=== PATIENT | female | born 1955 | race Caucasian/White ===

== ENCOUNTER 2022-07-23 11:17 | Emergency (ER) | payer BC ==
[~2022-07-23] VITALS: Ht 162.6 cm; Wt 71.4 kg
[2022-07-23 12:15] LABS: BASO # 0.03 K/mm3 (0.02-0.10); EOS # 0.18 K/mm3 (0.04-0.40); EOS % 3.1 % (1.0-5.0); HEMATOCRIT 43.7 % (37.0-47.0); HEMOGLOBIN 14.4 g/dL (12.5-16.0); LYMPH# 2.13 K/mm3 (1.50-4.00); MEAN CELL VOLUME 89 fl (78-100); MEAN CORPUSCULAR HEMOGLOBIN 29 pg (27-31); MEAN CORPUSCULAR HGB CONC 33 g/dL (33-37); MEAN PLATELET VOLUME 8.9 fl (7.4-10.4); MONO # 0.33 K/mm3 (0.20-0.80); NEU # 3.12 K/mm3 (1.40-6.50); PLATELET COUNT 272 K/mm3 (130-400); RED BLOOD COUNT 4.92 M/mm3 (4.10-5.30); RED CELL DISTRIBUTION WIDTH 12.8 % (11.5-14.5); WHITE BLOOD COUNT 5.8 K/mm3 (4.8-10.8)
[2022-07-23 12:18] LABS: ALBUMIN 4.3 g/dL (3.4-4.8); POTASSIUM 4.4 mmol/L (3.5-5.1)
[2022-07-23 12:21] LABS: TOTAL PROTEIN 7.4 g/dL (6.2-8.1)
[2022-07-23 12:22] LABS: TOTAL BILIRUBIN 0.5 mg/dL (0.2-1.2)
[2022-07-23 13:19] VITALS: BP 156/89
== END 2022-07-23 13:20 | disposition home or self-care (01) ==
LOC: ED 11:17
PROVIDERS: Physician Assistant
DX: R07.89 Other chest pain (principal); Z28.311 Partially vaccinated for COVID-19; Z88.8 Allergy status to other drugs, medicaments and biological substances
CPT/HCPCS: J1885